=== PATIENT | male | born 2000 | race Caucasian/White ===

== ENCOUNTER → 2023-12-29 16:17 | Outpatient (REF) | payer OTHER, SELFPAY | LOC: RAD 16:17 | PROVIDERS: ATTENDING PHYSICIAN Family Medicine | DX: M25.511 Pain in right shoulder (principal); M25.512 Pain in left shoulder | CPT/HCPCS: 73050 ==

== ENCOUNTER → 2024-01-20 08:34 | Outpatient (REF) | payer OTHER, SELFPAY | LOC: MRI 3T 08:34 | PROVIDERS: ATTENDING PHYSICIAN Family Medicine | DX: M54.2 Cervicalgia (principal) | CPT/HCPCS: 70030; 72141 ==

== ENCOUNTER → 2024-03-14 13:33 | Outpatient (REF) | payer OTHER, SELFPAY | LOC: MRI 3T 13:33 | PROVIDERS: ATTENDING PHYSICIAN Pain Medicine Interventional Pain Medicine | DX: M25.811 Other specified joint disorders, right shoulder (principal) | CPT/HCPCS: 23350; 73040; 73222 ==